=== PATIENT | male | born 1965 | race Two or more races ===

== ENCOUNTER 2017-04-15 22:42 | Emergency (ER) | payer BC ==
[2017-04-15 22:47] VITALS: BP 153/84
[2017-04-15] MEDS ORDERED: DOXYcycline CAP(*) 100 MG PO ONE (23:02)
--- NOTE | 2017-04-15 23:11 | ED ---
Bite Injury/Animal - History of Current Complaint Chief Complaint: EDRashSkinAbscess Stated Complaint: TICK ON CHEST Time Seen by Provider: 04/15/17 22:56 Hx Obtained From: Patient Pain Intensity: 6 PMH/Surg Hx/FS Hx/Imm Hx Infectious Disease History: Denies: Traveled Outside the [place] in Last 30 Days Physical Exam Vital Signs On Initial Exam: Initial Vitals Temp Pulse Resp BP Pulse Ox 98 F 77 18 153/84 97 04/15/17 22:45 04/15/17 22:45 04/15/17 22:45 04/15/17 22:45 04/15/17 22:45 Diagnostics - Vital Signs Vital Signs Temp Pulse Resp BP Pulse Ox 04/15/17 22:45 98 F 77 18 153/84 97 - Laboratory Lab Statement: Any lab studies that have been ordered have been reviewed, and results considered in the medical decision making process. Discharge - Discharge Plan Condition: Stable Disposition: HOME Patient Education Materials: Tick Bite (ED) Referrals: Hever Gerber MD [Primary Care Provider] - Additional Instructions: Please follow-up with primary care provider if symptoms develop. Return to the emergency department if symptoms worsen.
== END 2017-04-15 23:16 | disposition home or self-care (01) ==
LOC: ED 22:42
DX: S20.369A Insect bite (nonvenomous) of unspecified front wall of thorax, initial encounter (principal); W57.XXXA Bitten or stung by nonvenomous insect and other nonvenomous arthropods, initial encounter; Y93.9 Activity, unspecified; Y92.9 Unspecified place or not applicable; Y99.9 Unspecified external cause status
CPT/HCPCS: 99281; A9270-GY